=== PATIENT | male | born 1995 | race Caucasian/White ===

== ENCOUNTER 2019-03-24 03:14 | Emergency (ER) | payer OTHER ==
[~2019-03-24] VITALS: Ht 195.6 cm; Wt 136.3 kg
[2019-03-24 03:20] VITALS: BP 163/88; PULSE 127; RESP 18; Ht 195.6 cm; Wt 136.3 kg
--- NOTE | 2019-03-24 05:25 | ERD ---
ER Documentation Chief Complaint Chief Complaint Nose bleed 30 minutes [employer], S/P septoplasty adenoidectomy. HPI 23-year-old male who is post septoplasty and adenoidectomy approximate 4 weeks ago presenting to the emergency department complaining of severe epistaxis beginning approximately 1 hour prior to arrival. Symptoms are intermittent. He denies any pain. He denies any fevers, chills, or other symptoms at this time. Symptoms moderate in severity. ROS All systems reviewed and are negative except as per history of present illness. Allergies Allergies: Coded Allergies: No Known Allergy (Unverified , 03/24/19) PMhx/Soc History of Surgery: Yes (s/p septoplasty,adenoidectomy) Hx Alcohol Use: No Hx Substance Use: No Hx Tobacco Use: No Smoking Status: Never smoker FmHx Family History: No diabetes Physical Exam Vitals Vital Signs Date Temp Pulse Resp B/P (MAP) Pulse Ox O2 O2 Flow FiO2 Time Delivery Rate 03/24/19 97.0 127 18 163/88 96 03:20 (113) Physical Exam Const: No acute distress Head: Atraumatic Eyes: Normal Conjunctiva ENT: Normal External Ears, Nose and Mouth. Dried blood noted to the nares bilaterally. Mild amount of blood noted to the posterior pharynx. Airway is patent. Neck: Full range of motion. No meningismus. Resp: Clear to auscultation bilaterally Cardio: Regular rate and rhythm, no murmurs Skin: No petechiae or rashes Ext: No cyanosis, or edema Neur: Awake and alert Psych: Normal Mood and Affect Result Diagram: 03/24/19 0422 03/24/19 0422 Results 24 hrs Laboratory Tests Test 03/24/19 04:22 White Blood Count 9.1 10^3/ul Red Blood Count 4.87 10^6/ul Hemoglobin 11.0 g/dl Hematocrit 37.3 % Mean Corpuscular Volume 76.6 fl Mean Corpuscular Hemoglobin 22.6 pg Mean Corpuscular Hemoglobin Concent 29.5 g/dl Red Cell Distribution Width 14.6 % Platelet Count 398 10^3/UL Mean Platelet Volume 9.2 fl Immature Granulocytes % 0.300 % Neutrophils % 57.9 % Lymphocytes % 29.5 % Monocytes % 10.2 % Eosinophils % 1.6 % Basophils % 0.5 % Nucleated Red Blood Cells % 0.0 /100WBC Immature Granulocytes # 0.030 10^3/ul Neutrophils # 5.3 10^3/ul Lymphocytes # 2.7 10^3/ul Monocytes # 0.9 10^3/ul Eosinophils # 0.2 10^3/ul Basophils # 0.1 10^3/ul Nucleated Red Blood Cells # 0.0 10^3/ul Sodium Level 146 mmol/L Potassium Level 3.7 mmol/L Chloride Level 110 mmol/L Carbon Dioxide Level 25 mmol/L Anion Gap 11 Blood Urea Nitrogen 14 mg/dl Creatinine 0.85 mg/dl Est Glomerular Filtrat Rate mL/min > 60 mL/min Glucose Level 127 mg/dl Calcium Level 9.3 mg/dl Total Bilirubin 0.3 mg/dl Direct Bilirubin 0.00 mg/dl Indirect Bilirubin 0.3 mg/dl Aspartate Amino Transf (AST/SGOT) 24 IU/L Alanine Aminotransferase (ALT/SGPT) 31 IU/L Alkaline Phosphatase 85 IU/L Total Protein 8.3 g/dl Albumin 4.2 g/dl Globulin 4.10 g/dl Albumin/Globulin Ratio 1.02 Procedures/MDM 23-year-old male presents to the emergency department complaining of epistaxis which began 1 hour prior to arrival. No active bleeding noted on my examination. Mild amount of blood noted to the posterior pharynx. Patient's bleeding was controlled in the department and CBC showed no evidence of significant anemia. Patient will be discharged home and advised to have 24 to 48-hour follow-up with his surgeon. I did discuss his case with attending physician, Dr. Nasir Royal who is in agreement with diagnosis, plan, need for follow-up, return precautions. Patient understood and agreed with my medical decision making. Patient's blood pressure was elevated (>120/80) but appears stable without evidence of hypertension emergency or urgency. The patient is to follow-up and pursue outpatient monitoring and therapy with their primary care physician within 1 week and return immediately if they have any new, worsening, or concerning symptoms. Departure Diagnosis: Primary Impression: Epistaxis Condition: Fair Patient Instructions: Epistaxis (Adult) Referrals: CHARITY SOTOMAYOR (PCP) Additional Instructions: SPECIALIST: YOU HAVE A MEDICAL CONDITION WHICH REQUIRES YOU TO SEE A SPECIALIST WITHIN THE NEXT 1-2 DAYS. PLEASE FOLLOW UP WITH YOUR PRIMARY PHYSICIAN FOR REFFERAL.IF YOU DO NOT HAVE A PRIMARY CARE PHYSICIAN AND/OR YOU CAN NOT AFFORD TO SEE A PHYSICIAN THE FOLLOWING RESOURCES HAVE BEEN SUPPLIED TO YOU. IT IS YOUR RESPONSIBILITY TO BE SEEN BY THE SPECIALIST: YOUR ENT NASIR SPRAGUE PA-C Mar 24, 2019 05:25
== END 2019-03-24 05:56 | disposition home or self-care (01) ==
LOC: FTE 03:14
DX: R04.0 Epistaxis (principal)
CPT/HCPCS: 80053; 85025; 99283